=== PATIENT | female | born 1985 | race African-American/Black ===

== ENCOUNTER 2018-04-25 17:35 | Emergency (ER) | payer OTHER, MEDICAID ==
[~2018-04-25] VITALS: Ht 162.6 cm; Wt 75.8 kg
[~2018-04-25 17:35] MED LIST: FLAGYL500 MG PO; LANTUS SOL100 UNIT/1 SUBQ; MACROBID 100 M100 M1 PO
[2018-04-25] MEDS ORDERED: ASPIR 8181 MG PO (17:52)
[2018-04-25] MEDS ORDERED: NOVOLOG100 UNIT/1 SUBQ (17:52)
[2018-04-25 18:49] LABS: URINE BILIRUBIN NEGATIVE (Negative); URINE BLOOD NEGATIVE (Negative); URINE CLARITY CLEAR; URINE COLOR YELLOW; URINE GLUCOSE-RANDOM 2+ (Negative); URINE KETONES TRACE (Negative); URINE LEUKOCYTES NEGATIVE (Negative); URINE NITRITE NEGATIVE (Negative); URINE PROTEIN TRACE (Negative); URINE UROBILINOGEN 0.2 E.U./dl (0.2-1.0)
[2018-04-25 18:51] LABS: ABSOLUTE EOSINOPHILS 0.4 thou/uL (0.0-0.7); ABSOLUTE LYMPHOCYTES 2.4 thou/uL (0.8-5.3); ABSOLUTE MONOCYTES 0.9 thou/uL (0.0-1.2); ABSOLUTE NEUTROPHILS 7.6 thou/uL (1.6-8.1); BASOPHILS 0.3 %; EOSINOPHILS 3.8 %; HEMATOCRIT 34.4 % (37.0-47.0); HEMOGLOBIN 11.8 gm/dL (12.0-15.0); LYMPHOCYTES 21.3 %; MCH 30.7 pg (26.0-34.0); MCHC 34.1 g/dL (28.0-37.0); MONOCYTES 7.6 %; MPV 8.5 fl. (7.2-11.1); NUCLEATED RBCS 0 /100WBC; PLATELET COUNT* 242 thou/uL (150-400); RBC 3.83 mil/uL (4.20-5.00); RDW-CV 12.2 % (10.5-14.5); WBC 11.3 thou/uL (4.0-11.0)
[2018-04-25 18:58] LABS: BACTERIA 1-9 Few /HPF (None Seen); SQUAMOUS >10 Many /LPF (0-3); URINE RBC 3-10 Few /HPF (0-2); URINE WBC 0-5 Rare /HPF (0-5)
[2018-04-25 19:01] LABS: CRYSTALS None Seen /LPF (None Seen)
[2018-04-25 19:05] LABS: CALCIUM 8.8 mg/dL (8.5-10.1); CREATININE 0.6 mg/dL (0.6-1.3); POTASSIUM 3.9 mmol/L (3.5-5.1)
[2018-04-25 19:10] LABS: ALBUMIN 2.2 g/dL (3.4-5.0); TOTAL BILIRUBIN 0.1 mg/dL (<0.1-1.0); TOTAL PROTEIN 6.7 g/dL (6.4-8.2)
[2018-04-25] MEDS ORDERED: ONDANSETRON HCL4 M2 PO (19:27)
[2018-04-25 19:56] VITALS: BP 147/95
== END 2018-04-25 19:56 | disposition home or self-care (01) ==
LOC: M.ERS 17:35
PROVIDERS: Nurse Practitioner Family
DX: O26.892 Other specified pregnancy related conditions, second trimester (principal); R51 Headache; O99.012 Anemia complicating pregnancy, second trimester; O24.912 Unspecified diabetes mellitus in pregnancy, second trimester; Z79.4 Long term (current) use of insulin; Z3A.20 20 weeks gestation of pregnancy

== ENCOUNTER 2018-06-28 07:54 | Emergency (ER) | payer OTHER, MEDICAID ==
[~2018-06-28] VITALS: Ht 162.6 cm; Wt 74.8 kg
[~2018-06-28 07:54] MED LIST changes: +ASPIR 8181 MG PO; +NOVOLOG100 UNIT/1 SUBQ; +ONDANSETRON HCL4 M2 PO
[2018-06-28] MEDS ORDERED: METFORMIN HCL500 MG PO (08:11)
[2018-06-28] MEDS ORDERED: PRENATAL (08:11)
[2018-06-28 08:49] VITALS: BP 139/96
== END 2018-06-28 08:49 | disposition home or self-care (01) ==
LOC: M.ERS 07:54
DX: Z71.1 Person with feared health complaint in whom no diagnosis is made (principal); O24.913 Unspecified diabetes mellitus in pregnancy, third trimester; Z3A.28 28 weeks gestation of pregnancy; Z79.4 Long term (current) use of insulin

== ENCOUNTER 2018-07-30 03:48 | Emergency (ER) | payer OTHER, MEDICAID ==
[~2018-07-30] VITALS: Ht 162.6 cm; Wt 77.6 kg
[~2018-07-30 03:48] MED LIST changes: +METFORMIN HCL500 MG PO; +PRENATAL
[2018-07-30 04:12] VITALS: BP 147/97
== END 2018-07-30 04:12 | disposition home or self-care (01) ==
LOC: M.ERS 03:48
DX: Z34.93 Encounter for supervision of normal pregnancy, unspecified, third trimester (principal); O24.113 Pre-existing type 2 diabetes mellitus, in pregnancy, third trimester; Z3A.33 33 weeks gestation of pregnancy

== ENCOUNTER 2019-01-30 20:53 | Emergency (ER) | payer OTHER, MEDICAID ==
[~2019-01-30] VITALS: Ht 162.6 cm; Wt 65.8 kg
[2019-01-30] MEDS ORDERED: BACTRIM DS TAB1 EACH PO (21:28)
[2019-01-30 21:37] VITALS: BP 132/89
== END 2019-01-30 21:40 | disposition home or self-care (01) ==
LOC: M.ERS 20:53
DX: L02.31 Cutaneous abscess of buttock (principal); E11.9 Type 2 diabetes mellitus without complications; Z79.4 Long term (current) use of insulin

== ENCOUNTER 2019-02-22 17:19 | Emergency (ER) | payer OTHER, MEDICAID ==
[~2019-02-22] VITALS: Ht 162.6 cm; Wt 70.3 kg
[~2019-02-22 17:19] MED LIST changes: +BACTRIM DS TAB1 EACH PO
[2019-02-22] MEDS ORDERED: NEURONTIN100 MG PO (17:31)
[2019-02-22] MEDS ORDERED: DOXYCYCLINE MO100 M1 PO (18:25)
[2019-02-22] MEDS ORDERED: NORCO 5-325 TA1 EAC1 PO (18:25)
[2019-02-22 18:38] VITALS: BP 142/74
== END 2019-02-22 18:41 | disposition home or self-care (01) ==
LOC: M.ERS 17:19
DX: L02.215 Cutaneous abscess of perineum (principal); Z48.01 Encounter for change or removal of surgical wound dressing; E11.9 Type 2 diabetes mellitus without complications; Z98.890 Other specified postprocedural states; Z79.4 Long term (current) use of insulin